=== PATIENT | male | born 1970 | race African-American/Black ===

== ENCOUNTER 2019-12-02 13:39 | Emergency (ER) | payer SELFPAY ==
[~2019-12-02] VITALS: Ht 185.4 cm; Wt 102.3 kg
[2019-12-02 13:54] VITALS: BP 128/90; Ht 185.4 cm; Wt 102.3 kg
[2019-12-02] MEDS ORDERED: TAMIFLU75 MG PO (14:54)
== END 2019-12-02 15:33 | disposition home or self-care (01) ==
LOC: D.ER 13:39
DX: J10.1 Influenza due to other identified influenza virus with other respiratory manifestations (principal); Z72.0 Tobacco use

== ENCOUNTER 2019-12-03 17:18 | Emergency (ER) | payer SELFPAY ==
[~2019-12-03] VITALS: Ht 185.4 cm; Wt 100.0 kg
[~2019-12-03 17:18] MED LIST: TAMIFLU75 MG PO
[2019-12-03 17:33] VITALS: Ht 185.4 cm; Wt 100.0 kg
[2019-12-03 18:10] LABS: BASOPHILS 0.3 % (0-2); EOSINOPHILS 0.3 % (0-7); HEMATOCRIT 39.7 % (42.0-54.0); HEMOGLOBIN 13.9 g/dL (13.5-17.5); LYMPHOCYTES 41.2 % (15-50); MCH 32.2 pg (26.0-34.0); MCV 91.9 fL (80.0-100.0); MEAN PLATELET VOLUME 9.7 fL (7.4-10.4); MONOCYTES 11.2 % (2-11); PLATELET COUNT 234 10x3/uL (130-400); RBC 4.32 10x6/uL (4.20-6.10); RDW 16.6 % (11.5-14.5); WBC 3.9 10x3/uL (4.8-10.8)
[2019-12-03 21:50] VITALS: BP 114/75
== END 2019-12-03 21:50 | disposition other institution (70) ==
LOC: D.ER 17:18
PROVIDERS: Emergency Medicine
DX: K92.1 Melena (principal)

== ENCOUNTER → 2020-02-19 09:46 | Outpatient (CLI) | payer MEDICAID ==
[2019-12-03 17:33] VITALS: BMI 29.0
== END | disposition home or self-care (01) ==
LOC: D.RAD 09:46
PROVIDERS: ATTEND Family Medicine
DX: R22.32 Localized swelling, mass and lump, left upper limb (principal)

== ENCOUNTER 2020-06-15 00:56 | Emergency (ER) | payer MEDICAID ==
[~2020-06-15] VITALS: Ht 185.4 cm; Wt 95.5 kg
[2020-06-15 01:01] VITALS: Ht 185.4 cm; Wt 95.5 kg
[2020-06-15] MEDS ORDERED: VISTARIL50 MG PO (01:26)
[2020-06-15 02:18] VITALS: BP 104/74
== END 2020-06-15 02:19 | disposition home or self-care (01) ==
LOC: D.ER 00:56
DX: L29.9 Pruritus, unspecified (principal)